=== PATIENT | female | born 1975 | race Caucasian/White ===

== ENCOUNTER 2016-11-13 14:33 | Outpatient (CLI) | payer MEDICARE, MEDICAID ==
[2016-11-13 16:22] LABS: PROLACTIN 3.79 ng/mL
[2016-11-13 16:35] LABS: THYROID STIMULATING HORMONE 1.63 uIU/mL (0.34-5.60)
[2016-11-15 12:52] LABS: VARICELLA ZOSTER VZV AB IGG >4000.00 index (())
[2016-11-16 15:06] LABS: TREPONEMA AB IGG NEGATIVE (())
== END 2016-11-13 14:34 | disposition home or self-care (01) ==
LOC: LAB 14:33
PROVIDERS: ATTEND Obstetrics & Gynecology
DX: E34.8 Other specified endocrine disorders (principal); Z31.41 Encounter for fertility testing; Z98.51 Tubal ligation status
CPT/HCPCS: 80074; 84146; 84443; 86780; 86787; 87341; G0475; 36415; 87389

== ENCOUNTER 2016-12-08 15:49 | Outpatient (CLI) | payer MEDICARE, MEDICAID ==
--- NOTE | 2016-12-12 12:29 | Mammography Report ---
DIGITAL BILATERAL SCREENING MAMMOGRAM: 12/08/2016 CLINICAL HISTORY: A 41-year-old female in for routine screening mammogram. Patient has a family his tory of breast cancer. She had a maternal aunt with breast cancer in her 30s. Patient had bilateral breast implants. COMPARISON: 08/29/2012 TECHNIQUE: Craniocaudad and oblique lateral views of each breast were obtained with [facility] Full Fie ld digital mammography. To compliment the exam, bilateral craniocaudad and oblique lateral Ro vi ews were done. FINDINGS: Breasts are almost entirely composed of fat. Bilateral retropectoral saline breast implants are seen. No significant clusters of calcification ar e seen. No significant masses are noted. No change is noted. IMPRESSION: BREASTS APPEAR RADIOGRAPHICALLY BENIGN. BIRADS CATEGORY 1 - NEGATIVE. RECOMMENDATIONS: Annual bilateral screening mammography. STANDARD QUALIFYING STATEMENTS 1. This examination was reviewed with the aid of Computer-Aided Detection (CAD). 2. A negative or benign imaging report should not delay biopsy if clinically suspicious findings are present. Consider surgical consultation if warranted. More than 5% of cancers are not identified by i yumiko. 3. Dense breasts may obscure an underlying neoplasm. JOB #: [id number] EXT JOB #:[id number]
== END 2016-12-08 15:50 | disposition home or self-care (01) ==
LOC: DI 15:49
PROVIDERS: ATTEND Obstetrics & Gynecology
DX: Z12.31 Encounter for screening mammogram for malignant neoplasm of breast (principal); Z98.82 Breast implant status
CPT/HCPCS: 77067

== ENCOUNTER 2017-04-09 09:50 | Emergency (ER) | payer OTHER, MEDICARE, MEDICAID ==
[2017-04-09 10:45] VITALS: BP 137/93
[2017-04-09] MEDS ORDERED: cefTRIAXone 1 GM VIAL IM STA (12:59)
[2017-04-09] MEDS ORDERED: ONDANSETRON 4 MG/2 ML VIAL IVP STA (12:59)
[2017-04-09] MEDS ORDERED: AZITHROMYCIN 250 MG TABLET PO STA (12:59)
[2017-04-09] MEDS ORDERED: lamiVUDine/ZIDOVUDINE 150 MG/300 MG TABLET PO STA (13:00)
[2017-04-09] MEDS ORDERED: RALTEGRAVIR 400 MG TABLET PO STA (13:00)
[2017-04-09] MEDS ORDERED: cefTRIAXone 250 MG VIAL IM STA (13:02)
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
[2017-04-09] MEDS ORDERED: LIDOCAINE 1% 2 ML VIAL ONE (13:19)
[2017-04-09] MEDS ORDERED: AZITHROMYCIN 250 MG TABLET PO ONE (13:19)
[2017-04-09] MEDS ORDERED: cefTRIAXone 250 MG VIAL ONE (13:19)
[2017-04-09] MEDS ORDERED: ONDANSETRON ODT 4 MG TABLET ONE (13:22)
== END 2017-04-09 15:15 | disposition home or self-care (01) ==
LOC: ED 09:50
DX: T76.21XA Adult sexual abuse, suspected, initial encounter (principal); E78.00 Pure hypercholesterolemia, unspecified
CPT/HCPCS: 0131C; 36415; 84703; 87389; 96372; 99282; 99283; A9270; Q0162; 10160

== ENCOUNTER 2019-05-16 15:03 | Outpatient (CLI) | payer MEDICARE | END 2019-05-16 15:04 | disposition EMS.NT | LOC: EMS 15:03 | PROVIDERS: ATTEND Surgery | DX: R51 Headache (principal); R07.81 Pleurodynia; Y04.2XXA Assault by strike against or bumped into by another person, initial encounter; Y92.009 Unspecified place in unspecified non-institutional (private) residence as the place of occurrence of the external cause ==

== ENCOUNTER 2019-09-11 17:07 | Outpatient (CLI) | payer MEDICARE | END 2019-09-11 17:08 | disposition home or self-care (01) | LOC: COV 17:07 | PROVIDERS: ATTEND Family Medicine | DX: R50.9 Fever, unspecified (principal); R61 Generalized hyperhidrosis; R05 Cough; R06.02 Shortness of breath; R06.2 Wheezing; M79.10 Myalgia, unspecified site; J02.9 Acute pharyngitis, unspecified; R19.7 Diarrhea, unspecified | CPT/HCPCS: 81599 ==

== ENCOUNTER 2019-09-15 11:34 | Emergency (ER) | payer MEDICARE ==
[2019-09-15 13:00] LABS: BASOPHILS # (AUTO) 0.1 10^3/uL (0.0-0.1); BASOPHILS % (AUTO) 0.4 %; EOSINOPHILS % (AUTO) 0.1 %; HGB - HEMOGLOBIN 16.1 g/dL (12.0-16.0); LYMPHOCYTES # (AUTO) 0.7 10^3/uL (1.5-3.5); LYMPHOCYTES % (AUTO) 3.8 %; MEAN CORPUSCULAR HEMOGLOBIN 29.4 pg (27.0-31.0); MEAN CORPUSCULAR HGB CONC 33.3 g/dL (32.0-36.0); MEAN CORPUSCULAR VOLUME 88.3 fL (81.0-99.0); MEAN PLATELET VOLUME 11.6 fL (7.9-10.8); MONOCYTES % (AUTO) 5.2 %; NEUTROPHILS # (AUTO) 16.3 10^3/uL (1.5-6.6); NEUTROPHILS % (AUTO) 89.8 %; PLT - PLATELET COUNT 221 10^3/uL (130-450); RED BLOOD COUNT 5.47 10^6/uL (4.20-5.40); RED CELL DISTRIBUTION WIDTH 15.3 % (12.0-15.0); WHITE BLOOD COUNT 18.2 x10^3/uL (4.8-10.8)
[2019-09-15 13:13] LABS: ALBUMIN 4.2 g/dL (3.2-5.5); ALBUMIN/GLOBULIN RATIO 1.1 (1.0-2.2); BILIRUBIN,TOTAL 1.2 mg/dL (0.2-1.0); CALCIUM 8.8 mg/dL (8.5-10.3); CREATININE 0.8 mg/dL (0.4-1.0)
[2019-09-15] MEDS ORDERED: KETOROLAC 30 MG/ML VIAL IVP STA (13:28)
[2019-09-15] MEDS ORDERED: DEXAMETHASONE 10 MG/ML VIAL IVP STA (13:28)
[2019-09-15] MEDS ORDERED: ONDANSETRON 4 MG/2 ML VIAL IVP STA (13:28)
[2019-09-15] MEDS ORDERED: SODIUM CHLORIDE 0.9% 1,000 ML IV ONE (13:28)
[2019-09-15] MEDS ORDERED: cefTRIAXone 1 GM in SODIUM CHLORIDE 0.9% MINIBAG 100 ML IV STA (13:28)
--- NOTE | 2019-09-15 13:30 | ED Physician Documentation ---
PD HPI URI - Stated complaint Stated Complaint: COUGH/FEVER - Chief complaint Chief Complaint: General - History obtained from History obtained from: Patient - History of Present Illness Timing - onset: How many weeks ago (3) Timing duration: Weeks (3) Timing details: Gradual onset, Still present, Waxing and waning Associated symptoms: Fever, Chills, Sweats, Nasal congestion, Rhinorrhea, Productive cough, NVD Contributing factors: Sick contact Improves by: Rest Similar symptoms before: Diagnosis (pneumonia) Recently seen: Other - Additional information Additional information: 43-year-old female with a history of asthma has developed a cough and congestion over the past 3 weeks. She has had undulation of her symptoms she was tested for coronavirus last week and was negative she has had fever she is producing a white foam to her cough and she has developed some vomiting associated with this as well she is not feeling that she is wanting to eat or drink fluids. She is developed a headache and she is now come to the emergency department for treatment. She has had symptoms similar previously a number of years ago with otitis. Review of Systems Constitutional: reports: Fever, Chills, Myalgias, Fatigue, Sweats Eyes: denies: Decreased vision Ears: denies: Ear pain Nose: reports: Rhinorrhea / runny nose, Congestion Throat: reports: Sore throat Cardiac: denies: Chest pain / pressure, Palpitations Respiratory: reports: Dyspnea, Cough GI: reports: Abdominal Pain, Nausea, Vomiting : denies: Dysuria, Frequency PD PAST MEDICAL HISTORY - Past Medical History Cardiovascular: None, High cholesterol Respiratory: None Endocrine/Autoimmune: None GI: None : None HEENT: None Psych: Depression, Anxiety Musculoskeletal: None Derm: None - Past Surgical History 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 - Present Medications Home Medications: Ambulatory Orders Medication Instructions Recorded Confirmed Citalopram [CeleXA] 10 mg PO DAILY 04/09/17 09/15/19 Dextroamphetamine/Amphetamine 10 mg PO PRN PRN 04/09/17 09/15/19 [Adderall 10 mg Tablet] Raltegravir [Isentress] 400 mg PO BID #20 tablet 04/09/17 09/15/19 Simvastatin 40 mg PO DAILY 04/09/17 09/15/19 Tenofovir Disoproxil Fumarate 300 mg PO DAILY #10 tablet 04/09/17 09/15/19 [Viread] Tramadol HCl 50 mg PO PRN PRN 04/09/17 09/15/19 Cefdinir 300 mg PO BID #20 capsule 09/15/19 - Allergies Allergies/Adverse Reactions: Allergies Allergy/AdvReac Type Severity Reaction Status Date / Time Penicillins Allergy Intermediate Edema Verified 09/15/19 11:58 Sulfa (Sulfonamide Allergy Edema Verified 09/15/19 11:58 Antibiotics) - Social History Does the pt smoke?: No Smoking Status: Never smoker Does the pt drink ETOH?: Yes Does the pt have substance abuse?: Yes - Immunizations Immunizations are current?: Yes - POLST Patient has POLST: No PD ED PE NORMAL - Vitals Vital signs reviewed: Yes (hypertensive ) - General General: Alert and oriented X 3, No acute distress, Well developed/nourished - HEENT HEENT: Atraumatic, PERRL, EOMI, Pharynx benign, Other (The right TM is erythematous with distortion of landmarks the left is clear the mucous membranes are dry.) - Neck Neck: Supple, no meningeal sign, No bony TTP - Cardiac Cardiac: RRR, No murmur - Respiratory Respiratory: No respiratory distress, Clear bilaterally - Abdomen Abdomen: Normal bowel sounds, Soft, Non tender, Non distended, No organomegaly - Back Back: No CVA TTP, No spinal TTP - Derm Derm: Normal color, Warm and dry, No rash - Extremities Extremities: No deformity, No edema, No calf tenderness / cord - Neuro Neuro: Alert and oriented X 3, 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-12 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, No motor deficit, No sensory deficit, Normal speech Eye Opening: Spontaneous Motor: Obeys Commands Verbal: Oriented GCS Score: 15 - Psych Psych: Other (Mood is withdrawn the affect is flat) Results - Vitals Vitals: Vital Signs - 24 hr 09/15/19 09/15/19 11:51 14:00 Temperature 36.2 C L Heart Rate 98 63 Respiratory 20 18 Rate Blood Pressure 200/88 H 189/102 H O2 Saturation 98 100 Oxygen O2 Source Room air - Labs Labs: Laboratory Tests 09/15/19 09/15/19 09/15/19 12:52 12:52 13:39 WBC 18.2 H RBC 5.47 H Hgb 16.1 H Hct 48.3 H MCV 88.3 MCH 29.4 MCHC 33.3 RDW 15.3 H Plt Count 221 MPV 11.6 H Neut # (Auto) 16.3 H Lymph # (Auto) 0.7 L Nance # (Auto) 1.0 Eos # (Auto) 0.0 Baso # (Auto) 0.1 Absolute Nucleated RBC 0.00 Nucleated RBC % 0.0 Sodium 134 L Potassium 3.6 Chloride 97 L Carbon Dioxide 24 Anion Gap 13.0 BUN 11 Creatinine 0.8 Estimated GFR (MDRD) 78 L Glucose 127 H Calcium 8.8 Total Bilirubin 1.2 H AST 37 ALT 29 Alkaline Phosphatase 121 Total Protein 8.0 Albumin 4.2 Globulin 3.8 Albumin/Globulin Ratio 1.1 Lipase 25 Urine Color DARK YELLOW Urine Clarity HAZY Urine pH 6.0 Ur Specific [place] >=1.030 H Urine Protein 30 H Urine Glucose (UA) NEGATIVE Urine Ketones >=80 H Urine Occult Blood NEGATIVE Urine Nitrite NEGATIVE Urine Bilirubin NEGATIVE Urine Urobilinogen 0.2 (NORMAL) Ur Leukocyte Esterase NEGATIVE Urine RBC None Seen Urine WBC 0-3 Ur Squamous Epith Cells MANY Squamous H Urine Bacteria Many H Urine Casts 0-2 Hyaline Casts Urine Mucus Few Strands Ur Microscopic Review INDICATED Urine Culture Comments NOT INDICATED Urine HCG, Qual NEGATIVE PD MEDICAL DECISION MAKING - ED course Complexity details: reviewed old records, reviewed results, re-evaluated patient, considered differential, d/w patient ED course: 43-year-old female with a prior history of URI has developed URI symptoms again and on exam has otitis. This is during the coronavirus outbreak and COVID-19 specimen is obtained a second time. She is 100% saturated on oxygen and has clear sounding lungs. She is mostly miserable with not being able to eat or drink and I suspect she is significantly dehydrated. She is administered intravenous saline Rocephin dexamethasone and Toradol. Departure - Departure Disposition: 01 Home, Self Care Clinical Impression: Otitis media Qualifiers: Otitis media type: suppurative Chronicity: acute Laterality: right Recurrence: non-recurrent Spontaneous tympanic membrane rupture: without spontaneous rupture Qualified Code(s): H66.001 - Acute suppurative otitis media without spontaneous rupture of ear drum, right ear Headache Qualifiers: Headache type: unspecified Headache chronicity pattern: acute headache Intractability: not intractable Qualified Code(s): R51 - Headache Condition: Stable Instructions: ED Otitis Media Acute Adult Follow-Up: FRANCOIS HARDWICK DO [Primary Care Provider] - Prescriptions: Cefdinir 300 mg PO BID #20 capsule
[2019-09-15 13:56] LABS: GLUCOSE, URINE (UA) NEGATIVE (NEGATIVE); KETONES,URINE (UA) >=80 mg/dL (NEGATIVE); LEUKOCYTE ESTERASE, URINE NEGATIVE (NEGATIVE); NITRITE,URINE NEGATIVE (NEGATIVE); OCCULT BLOOD,URINE NEGATIVE (NEGATIVE); PROTEIN,URINE 30 mg/dL (NEGATIVE); UROBILINOGEN,URINE 0.2 (NORMAL) E.U./dL (NORMAL)
[2019-09-15 13:58] LABS: BILIRUBIN,URINE NEGATIVE (NEGATIVE); CLARITY,URINE HAZY (CLEAR); HCG UR QUAL NEGATIVE; ICTOTEST,URINE NEGATIVE
[2019-09-15 14:03] LABS: BACTERIA,URINE Many /HPF (None Seen); CASTS, URINE 0-2 Hyaline Casts /LPF; MUCUS,URINE Few Strands; RBC,URINE None Seen /HPF (0-5); SQUAMOUS EPITHELIAL CELL,UR MANY Squamous (<= Few)
[2019-09-15] MEDS ORDERED: PROCHLORPERAZINE 10 MG/2 ML VIAL IVP STA (14:30)
[2019-09-15] MEDS ORDERED: diphenhydrAMINE INJ 50 MG/ML VIAL IVP STA (14:30)
[2019-09-15 15:42] VITALS: BP 149/107
== END 2019-09-15 16:07 | disposition home or self-care (01) ==
LOC: ED 11:34
DX: H66.001 Acute suppurative otitis media without spontaneous rupture of ear drum, right ear (principal); R51 Headache
CPT/HCPCS: 36415; 80053; 81001; 81025; 83690; 85025; 96361; 96365; 96375; 99284; 99285; J1200; U0004; 81003; 81599; 87086

== ENCOUNTER 2019-11-29 11:53 | Outpatient (CLI) | payer MEDICARE | END 2019-11-29 11:54 | disposition critical access hospital (66) | LOC: EMS 11:53 | PROVIDERS: ATTEND Surgery | DX: I46.9 Cardiac arrest, cause unspecified (principal) | CPT/HCPCS: A0425; A0433 ==

== ENCOUNTER 2019-11-29 12:09 | Emergency (ER) | payer MEDICARE ==
[2019-11-29] MEDS ORDERED: SODIUM CHLORIDE 0.9% 1,000 ML IV STA (12:23)
[2019-11-29] MEDS ORDERED: SODIUM BICARBONATE 100 MEQ in DEXTROSE 5% 1,000 ML IV STA (12:25)
--- NOTE | 2019-11-29 12:25 | ED Physician Documentation ---
PD HPI CPR - Stated complaint Stated Complaint: CPR ROSC - History obtained from History obtained from: Patient - History of Present Illness Timing - onset: How many minutes ago (20-30), Today Timing - onset during: Light activity (Her states he heard the patient talking or yelling out her dogs in the next room about 5 or 10 minutes prior and then heard a irregular loud breathing coming from the next room and went to check on her she was blue and lying on the floor with snoring or choking type breathing sounds.) Preceding symptoms: Unknown (Unknown preceding symptoms. The patient called EMS and started CPR. Medics found the patient to be in a shockable rhythm and defibrillated once to a sinus rhythm with a pulse. She then had alteration from tachycardia to bradycardia that responded to epinephrine and then had a sinus tach/pulse.) Contributing factors: No: CAD, Diabetes, Recent hospital/surgery Recently seen: Not recently seen Witnessed: Arrest not witnesssed Bystander CPR: Bystander CPR EMS findings: Apneic, Pulseless, V fib Treatment ALTO SINGER: CPR, Defibrillated (Responded to defibrillation with a sinus tachycardia versus A. fib but then went bradycardic after several minutes and responded to epi. Had a pulse/rhythm enroute and on arrival), Intubated, Epi Review of Systems Unable to obtain: Unresponsive, Intubated, Other (info from ) Constitutional: denies: Fever Respiratory: denies: Cough GI: denies: Vomiting, Diarrhea Neurologic: reports: Headache (commonly for past months post concussion). 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: Tubal ligation - Present Medications Home Medications: Ambulatory Orders Medication Instructions Recorded Confirmed Citalopram [CeleXA] 10 mg PO DAILY 04/09/17 09/15/19 Dextroamphetamine/Amphetamine 10 mg PO PRN PRN 04/09/17 09/15/19 [Adderall 10 mg Tablet] Raltegravir [Isentress] 400 mg PO BID #20 tablet 04/09/17 09/15/19 Simvastatin 40 mg PO DAILY 04/09/17 09/15/19 Tenofovir Disoproxil Fumarate 300 mg PO DAILY #10 tablet 04/09/17 09/15/19 [Viread] Tramadol HCl 50 mg PO PRN PRN 04/09/17 09/15/19 Cefdinir 300 mg PO BID #20 capsule 09/15/19 - Allergies Allergies/Adverse Reactions: Allergies Allergy/AdvReac Type Severity Reaction Status Date / Time Penicillins Allergy Intermediate Edema Verified 11/29/19 12:36 Sulfa (Sulfonamide Allergy Edema Verified 11/29/19 12:36 Antibiotics) - Social History Does the pt smoke?: No Smoking Status: Never smoker Does the pt drink ETOH?: Yes Does the pt have substance abuse?: Yes - Immunizations Immunizations are current?: Yes - POLST Patient has POLST: No PD ED PE NORMAL - Vitals Vital signs reviewed: Yes - General General: Well developed/nourished, Other (She arrives intubated and unresponsive with occasional agonal breaths over the [id number] rate.) - HEENT HEENT: Pharynx benign - Neck Neck: Supple, no meningeal sign, No adenopathy, No JVD - Cardiac Cardiac: No rub. No: RRR (tachycardic but regular) - Respiratory Respiratory: Clear bilaterally, Other (Breath sounds are symmetric and to position sounds appropriate) - Abdomen Abdomen: Soft, Non tender, Other (Mild distention of the abdomen) - Derm Derm: Normal color, Warm and dry - Extremities Extremities: No edema - Neuro Neuro: Other (She seems slightly hyperreflexic in the extremities) Eye Opening: None Motor: Withdraws to Pain Verbal: None GCS Score: 6 Results - Vitals Vitals: Vital Signs - 24 hr 11/29/19 11/29/19 11/29/19 12:10 12:22 12:51 Temperature 34.3 C L 35.1 C L Heart Rate 134 H 132 H 126 H Respiratory 19 16 26 H Rate Blood Pressure 170/125 H 155/117 H 145/105 H O2 Saturation 100 100 100 11/29/19 11/29/19 11/29/19 13:01 13:06 13:07 Temperature 35.1 C L 35.1 C L Heart Rate 119 H 120 H 120 H Respiratory 26 H 28 H Rate Blood Pressure 135/105 H 137/104 H O2 Saturation 100 100 0711/29/19 11/29/19 13:15 13:30 13:45 Temperature 35.1 C L 35.2 C L 35.2 C L Heart Rate 118 H 124 H 119 H Respiratory 21 30 H 26 H Rate Blood Pressure 128/97 H 120/98 H 118/86 H O2 Saturation 97 94 98 11/29/19 11/29/19 14:00 14:15 Temperature 35.4 C L 35.5 C L Heart Rate 123 H 122 H Respiratory 22 24 Rate Blood Pressure 117/91 H 118/90 H O2 Saturation 98 98 Oxygen O2 Source Mechanical ventilator - EKG (time done) 14:01 Rate: Rate (enter#) (126) Rhythm: Sinus tachycardia [place]: Normal Ischemia: Normal ST segments. No: ST elevation c/w ischemia, ST depression - Labs Labs: Laboratory Tests 11/29/19 11/29/19 11/29/19 12:18 12:18 12:18 WBC 20.3 H RBC 4.71 Hgb 14.6 Hct 46.3 MCV 98.3 MCH 31.0 MCHC 31.5 L RDW 13.1 Plt Count 162 MPV 11.8 H Neut # (Auto) INTERNAL MEDICINE NURSE PRACTITIONER Lymph # (Auto) INTERNAL MEDICINE NURSE PRACTITIONER Crisp # (Auto) INTERNAL MEDICINE NURSE PRACTITIONER Eos # (Auto) INTERNAL MEDICINE NURSE PRACTITIONER Baso # (Auto) INTERNAL MEDICINE NURSE PRACTITIONER Absolute Nucleated RBC INTERNAL MEDICINE NURSE PRACTITIONER Total Counted 100 Band Neuts % (Manual) 8 Reactive Lymphs % (Man) 3 Abnorm Lymph % (Manual) 0 Metamyelocytes % 1 H Myelocytes % 2 H Nucleated RBC % INTERNAL MEDICINE NURSE PRACTITIONER Neutrophils # (Manual) 14.6 H Lymphocytes # (Manual) 4.5 H Monocytes # (Manual) 0.6 Eosinophils # (Manual) 0.0 Basophils # (Manual) 0.0 Differential Comment MANUAL DIFFERENTIAL Manual Slide Review Indicated RBC Morph Micro Appear 1+ ANISOCYTOSIS Bld Gas Analysis Time Sample Site ABG pH ABG pCO2 ABG pO2 ABG HCO3 ABG Total CO2 ABG O2 Saturation ABG Base Excess [place] Test Respiration Rate O2 Delivery Device Vent Mode FiO2 Tidal Volume PEEP Pressure Support Vent Sodium 135 Potassium 4.0 Chloride 101 Carbon Dioxide 13 L Anion Gap 21.0 H BUN 8 Creatinine 1.1 H Estimated GFR (MDRD) 54 L Glucose 396 H Calcium 7.9 L Magnesium 2.4 Total Bilirubin 0.6 AST 412 H ALT 248 H Alkaline Phosphatase 105 Troponin I High Sens B-Natriuretic Peptide 197 H Total Protein 6.1 L Albumin 3.4 Globulin 2.7 Albumin/Globulin Ratio 1.3 Lipase 37 TSH Free T4 Free T3 pg/mL Urine Color Urine Clarity Urine pH Ur Specific [place] Urine Protein Urine Glucose (UA) Urine Ketones Urine Occult Blood Urine Nitrite Urine Bilirubin Urine Urobilinogen Ur Leukocyte Esterase Urine RBC Urine WBC Ur Squamous Epith Cells Amorphous Sediment Urine Bacteria Urine Casts Urine Yeast Ur Microscopic Review Urine Culture Comments Urine HCG, Qual Salicylates < 6.0 Urine Opiates Screen Ur Oxycodone Screen Urine Methadone Screen Ur Propoxyphene Screen Acetaminophen < 10 L Ur Barbiturates Screen Ur Tricyclics Screen Ur Phencyclidine Scrn Ur Amphetamine Screen U Methamphetamines Scrn U Benzodiazepines Scrn Urine Cocaine Screen U Cannabinoids Screen Ethyl Alcohol < 5.0 Serum Ketones 11/29/19 11/29/19 11/29/19 12:18 12:18 12:18 WBC RBC Hgb Hct MCV MCH MCHC RDW Plt Count MPV Neut # (Auto) Lymph # (Auto) Crisp # (Auto) Eos # (Auto) Baso # (Auto) Absolute Nucleated RBC Total Counted Band Neuts % (Manual) Reactive Lymphs % (Man) Abnorm Lymph % (Manual) Metamyelocytes % Myelocytes % Nucleated RBC % Neutrophils # (Manual) Lymphocytes # (Manual) Monocytes # (Manual) Eosinophils # (Manual) Basophils # (Manual) Differential Comment Manual Slide Review RBC Morph Micro Appear Bld Gas Analysis Time Sample Site ABG pH ABG pCO2 ABG pO2 ABG HCO3 ABG Total CO2 ABG O2 Saturation ABG Base Excess [place] Test Respiration Rate O2 Delivery Device Vent Mode FiO2 Tidal Volume PEEP Pressure Support Vent Sodium Potassium Chloride Carbon Dioxide Anion Gap BUN Creatinine Estimated GFR (MDRD) Glucose Calcium Magnesium Total Bilirubin AST ALT Alkaline Phosphatase Troponin I High Sens 76.8 H* B-Natriuretic Peptide Total Protein Albumin Globulin Albumin/Globulin Ratio Lipase TSH 25.48 H Free T4 0.70 Free T3 pg/mL 3.52 Urine Color Urine Clarity Urine pH Ur Specific [place] Urine Protein Urine Glucose (UA) Urine Ketones Urine Occult Blood Urine Nitrite Urine Bilirubin Urine Urobilinogen Ur Leukocyte Esterase Urine RBC Urine WBC Ur Squamous Epith Cells Amorphous Sediment Urine Bacteria Urine Casts Urine Yeast Ur Microscopic Review Urine Culture Comments Urine HCG, Qual Salicylates Urine Opiates Screen Ur Oxycodone Screen Urine Methadone Screen Ur Propoxyphene Screen Acetaminophen Ur Barbiturates Screen Ur Tricyclics Screen Ur Phencyclidine Scrn Ur Amphetamine Screen U Methamphetamines Scrn U Benzodiazepines Scrn Urine Cocaine Screen U Cannabinoids Screen Ethyl Alcohol Serum Ketones 11/29/19 11/29/19 11/29/19 12:18 12:25 13:49 WBC RBC Hgb Hct MCV MCH MCHC RDW Plt Count MPV Neut # (Auto) Lymph # (Auto) Crisp # (Auto) Eos # (Auto) Baso # (Auto) Absolute Nucleated RBC Total Counted Band Neuts % (Manual) Reactive Lymphs % (Man) Abnorm Lymph % (Manual) Metamyelocytes % Myelocytes % Nucleated RBC % Neutrophils # (Manual) Lymphocytes # (Manual) Monocytes # (Manual) Eosinophils # (Manual) Basophils # (Manual) Differential Comment Manual Slide Review RBC Morph Micro Appear Bld Gas Analysis Time 1356 Sample Site RIGHT RADIAL ABG pH 7.20 L* ABG pCO2 48 H ABG pO2 123 H ABG HCO3 18.9 L ABG Total CO2 20.0 L ABG O2 Saturation 98 ABG Base Excess -9.0 L [place] Test POSITIVE Respiration Rate 16 O2 Delivery Device VENTILATOR Vent Mode SIMV FiO2 0.60 Tidal Volume 450 PEEP 5 Pressure Support Vent 10 Sodium Potassium Chloride Carbon Dioxide Anion Gap BUN Creatinine Estimated GFR (MDRD) Glucose Calcium Magnesium Total Bilirubin AST ALT Alkaline Phosphatase Troponin I High Sens B-Natriuretic Peptide Total Protein Albumin Globulin Albumin/Globulin Ratio Lipase TSH Free T4 Free T3 pg/mL Urine Color YELLOW Urine Clarity HAZY Urine pH 6.0 Ur Specific [place] >=1.030 H Urine Protein 100 H Urine Glucose (UA) >=1000 H Urine Ketones NEGATIVE Urine Occult Blood MODERATE H Urine Nitrite NEGATIVE Urine Bilirubin NEGATIVE Urine Urobilinogen 0.2 (NORMAL) Ur Leukocyte Esterase NEGATIVE Urine RBC TNTC H Urine WBC 6-10 H Ur Squamous Epith Cells MANY Squamous H Amorphous Sediment Marked Urine Bacteria Many H Urine Casts 11-25 Granular Casts Urine Yeast PRESENT Ur Microscopic Review INDICATED Urine Culture Comments NOT INDICATED Urine HCG, Qual NEGATIVE Salicylates Urine Opiates Screen NEGATIVE Ur Oxycodone Screen NEGATIVE Urine Methadone Screen NEGATIVE Ur Propoxyphene Screen NEGATIVE Acetaminophen Ur Barbiturates Screen NEGATIVE Ur Tricyclics Screen NEGATIVE Ur Phencyclidine Scrn NEGATIVE Ur Amphetamine Screen POSITIVE H U Methamphetamines Scrn NEGATIVE U Benzodiazepines Scrn NEGATIVE Urine Cocaine Screen NEGATIVE U Cannabinoids Screen POSITIVE H Ethyl Alcohol Serum Ketones NEGATIVE - Rads (name of study) chest xray Radiology: Prelim report reviewed (Proper to position and no infiltrates), See rad report head CT Radiology: Prelim report reviewed (No acute intracranial bleeding or process), See rad report PD MEDICAL DECISION MAKING - ED course Complexity details: considered differential, d/w family () ED course: Patient reportedly seemed normal early in the day and her heard her talking with the dogs about 5 or 10 minutes prior to the event at which he noted her to have irregular breathing from the next room. He found her unresponsive and blue with occasional gasping breaths. EMS was called. She was defibrillated from V. fib to sinus tach. She alternated to bradycardia then tachycardia again with epinephrine and has maintained a pulse since that time. CPR time was 5 minutes perhaps. The patient is still unresponsive though he is having some spontaneous breathing over the ventilator rate. She is having some withdrawal to pain stimulus after a few minutes. Labs were showing high glucose without ketones. She was acidotic but consider that potentially lactic acid after the arrest. The cause of her symptoms are unclear. Consider possibility of seizure related to her medications and tramadol and prior concussive head injury in the past year. This could have led to hypoxic at episode and then V. fib. Alternatively some primary cardiac cause. She will need further investigation with cardiac testing as well as likely better neuro imaging. We do not have available MRI nor echocardiogram nor any assurance manager on staff here this weekend. As such I talked with our hospitalist and seemed appropriate for the patient be transferred to a higher level of care. She did start with some spontaneous eye opening here but was still not having any purposeful movement. - Critical Care Time(min): 45 Time Includes: Direct patient care, Coordinate care, Medical consult Data interpretation: Labs, Pulse ox, ABG, CXR Procedures excluded from critical care time: EKG Departure - Departure Disposition: 02 Transfer Acute Care Hosp Clinical Impression: Cardiac arrest with ventricular fibrillation, Signs of return of spontaneous circulation, Hyperglycemia Altered mental state Qualifiers: Altered mental status type: coma Coma depth: [employer] coma 3-8 Coma timing: in the field (EMT or ambulance) Qualified Code(s): R40.2431 - [employer] coma scale score 3-8, in the field [EMT or ambulance] Condition: Critical Record reviewed to determine appropriate education?: Yes Discharge Date/Time: 11/29/19 14:30
[2019-11-29 12:28] LABS: BASOPHILS % (AUTO) 0.6 %; EOSINOPHILS % (AUTO) 1.9 %; HGB - HEMOGLOBIN 14.6 g/dL (12.0-16.0); LYMPHOCYTES % (AUTO) 32.3 %; MEAN CORPUSCULAR HGB CONC 31.5 g/dL (32.0-36.0); MEAN CORPUSCULAR VOLUME 98.3 fL (81.0-99.0); MEAN PLATELET VOLUME 11.8 fL (7.9-10.8); MONOCYTES % (AUTO) 5.3 %; NEUTROPHILS % (AUTO) 54.6 %; PLT - PLATELET COUNT 162 10^3/uL (130-450); RED BLOOD COUNT 4.71 10^6/uL (4.20-5.40); RED CELL DISTRIBUTION WIDTH 13.1 % (12.0-15.0); WHITE BLOOD COUNT 20.3 x10^3/uL (4.8-10.8)
[2019-11-29 12:30] LABS: MUDS CUTOFF CONCENTRATIONS CUTOFF CONC BELOW:
[2019-11-29 12:40] LABS: BILIRUBIN,URINE NEGATIVE (NEGATIVE); GLUCOSE, URINE (UA) >=1000 mg/dL (NEGATIVE); KETONES,URINE (UA) NEGATIVE (NEGATIVE); LEUKOCYTE ESTERASE, URINE NEGATIVE (NEGATIVE); NITRITE,URINE NEGATIVE (NEGATIVE); OCCULT BLOOD,URINE MODERATE (NEGATIVE); PROTEIN,URINE 100 mg/dL (NEGATIVE); UROBILINOGEN,URINE 0.2 (NORMAL) E.U./dL (NORMAL)
[2019-11-29 12:43] LABS: CLARITY,URINE HAZY (CLEAR); HCG UR QUAL NEGATIVE
[2019-11-29 12:49] LABS: ABNORMAL LYMPHS % (MANUAL) 0 %
[2019-11-29 12:49] LABS: AMPHETAMINE SCREEN,URINE POSITIVE (NEGATIVE); BENZODIAZEPINES SCREEN, URINE NEGATIVE (NEGATIVE); COCAINE SCREEN URINE NEGATIVE (NEGATIVE); METHADONE SCREEN, URINE NEGATIVE (NEGATIVE); METHAMPHETAMINES SCREEN, URINE NEGATIVE (NEGATIVE); OPIATE SCREEN, URINE NEGATIVE (NEGATIVE); OXYCODONE SCREEN, URINE NEGATIVE (NEGATIVE); PROPOXYPHENE SCREEN, URINE NEGATIVE (NEGATIVE); TRICYCLIC ANTIDEPRESSANT,URINE NEGATIVE (NEGATIVE)
--- NOTE | 2019-11-29 12:54 | XRAY Report ---
PROCEDURE: Chest for Line Placement INDICATIONS: CARDIAC ARREST/ OJ TUBE TECHNIQUE: One view of the chest was acquired. COMPARISON: None FINDINGS: Surgical changes and devices: Endotracheal tube is present approximately 2 cm superior to the jace. Lungs and pleura: No pleural effusions or pneumothorax. There is a mild appearance of overall increa sed pulmonary vascularity. Left base is obscured by overlying pacer lead. Mediastinum: Mediastinal contours appear normal. Heart size is normal. Bones and chest wall: No suspicious bony lesions. Overlying soft tissues appear unremarkable. IMPRESSION: 1. Endotracheal tube is above. 2. Overall appearance of mild increased vascularity. This could represent edema. Left base is subopti sahil evaluated secondary to overlying pacer lead. Reviewed by: Renetta Shannon MD on 11/29/2019 12:53 PM PDT Approved by: Renetta Shannon MD on 11/29/2019 12:53 PM PDT Station ID: [id number]
[2019-11-29 12:55] LABS: BUN - BLOOD UREA NITROGEN 8 mg/dL (6-20); CARBON DIOXIDE - CO2 13 mmol/L (21-32); CHLORIDE 101 mmol/L (101-111); CREATININE 1.1 mg/dL (0.4-1.0); SODIUM 135 mmol/L (135-145)
[2019-11-29 12:56] LABS: ALBUMIN 3.4 g/dL (3.2-5.5); ALBUMIN/GLOBULIN RATIO 1.3 (1.0-2.2); ALKALINE PHOSPHATASE 105 IU/L (42-121); AST ASPARTATE AMINOTRANSFERASE 412 IU/L (10-42); BILIRUBIN,TOTAL 0.6 mg/dL (0.2-1.0); CALCIUM 7.9 mg/dL (8.5-10.3); GLUCOSE 396 mg/dL (70-100); MAGNESIUM 2.4 mg/dL (1.7-2.8); TOTAL PROTEIN 6.1 g/dL (6.7-8.2)
[2019-11-29 12:57] LABS: ACETAMINOPHEN < 10 ug/mL (10-30); LIPASE 37 U/L (22-51); SALICYLATE < 6.0 mg/dL
--- NOTE | 2019-11-29 12:57 | CT Report ---
PROCEDURE: HEAD WO INDICATIONS: altered mental status TECHNIQUE: Noncontrast 4.5 mm thick angled axial sections acquired from the foramen magnum to the vertex. For r adiation dose reduction, the following was used: automated exposure control, adjustment of mA and/or kV according to patient size. COMPARISON: CT head 05/18/2015. FINDINGS: Image quality: Excellent. CSF spaces: Basal cisterns are patent. No extra-axial fluid collections. Ventricles are normal in size and shape. Brain: No midline shift. No intracranial masses or hemorrhage. Zayas-white matter interface is norm al. Skull and face: Calvarium and visualized facial bones are intact, without suspicious lesions. Sinuses: Visualized sinuses and mastoids are clear. IMPRESSION: 1. No acute intracranial process. Reviewed by: Renetta Shannon MD on 11/29/2019 12:56 PM PDT Approved by: Renetta Shannon MD on 11/29/2019 12:56 PM PDT Station ID: [id number]
[2019-11-29 13:03] LABS: BAND NEUTROPHILS % (MANUAL) 8 %; DIFFERENTIAL COMMENT MANUAL DIFFERENTIAL; LYMPHOCYTES # (MANUAL) 4.5 10^3/uL (1.5-3.5); LYMPHOCYTES % (MANUAL) 19 %; METAMYELOCYTES % (MANUAL) 1 %; MONOCYTES # (MANUAL) 0.6 10^3/uL (0.0-1.0); MYELOCYTES % (MANUAL) 2 %; RBC MORPHOLOGY (MULTIPLE) 1+ ANISOCYTOSIS (NORMAL)
[2019-11-29 13:05] LABS: ALT ALANINE AMINOTRANSFERASE 248 IU/L (10-60)
[2019-11-29 13:09] LABS: AMORPHOUS SEDIMENT,UR Marked /LPF; BACTERIA,URINE Many /HPF (None Seen); RBC,URINE TNTC /HPF (0-5); SQUAMOUS EPITHELIAL CELL,UR MANY Squamous (<= Few); YEAST,URINE PRESENT
[2019-11-29] MEDS ORDERED: LORazepam 2 MG/ML VIAL IVP STA ×2 (13:21→13:56)
[2019-11-29] MEDS ORDERED: PROPOFOL 500 MG/50 ML 500 MG/50 ML VIAL IV STA (13:56)
[2019-11-29 13:59] LABS: FREE T3 3.52 pg/mL (2.5-3.9)
[2019-11-29 14:00] LABS: FREE T4 (FREE THYROXINE) 0.7 ng/dL (0.58-1.64)
[2019-11-29 14:09] LABS: ABG PCO2 48 mmHg (34-45)
[2019-11-29 14:10] LABS: ABG HCO3 18.9 mmol/L (22.0-26.0); ABG OXYGEN SATURATION 98 % (94-98); ABG PO2 123 mmHg (80-100); ALLEN TEST POSITIVE
[2019-11-29 14:17] VITALS: BP 118/90
== END 2019-11-29 14:30 | disposition short-term general hospital (02) ==
LOC: EDUNIT# → ED 12:09
DX: I46.9 Cardiac arrest, cause unspecified (principal); I49.01 Ventricular fibrillation; I48.91 Unspecified atrial fibrillation; R40.20 Unspecified coma; R40.2431 Glasgow coma scale score 3-8, in the field [EMT or ambulance]; R73.9 Hyperglycemia, unspecified; Z11.59 Encounter for screening for other viral diseases
CPT/HCPCS: 36415; 36600; 51702; 70450; 71045; 80053; 81001; 81025; 81599; 82009; 82803; 83690; 83735; 83880; 84439; 84443; 84481; 84484; 85025; 93005; 96374; 96375; 96376; 99291; J2060; 80306; 80307; 80320; 80329; 81003; 87086; 94770